=== PATIENT | female | born 1980 | race Caucasian/White ===

== ENCOUNTER 2017-08-01 11:42 | Emergency (ER) | payer BC, MEDICAID ==
--- NOTE | 2017-08-01 12:21 | Emergency Department Record ---
History of Present Illness - General Chief Complaint: Knee injury Stated Complaint: L KNEE INJURY Time Seen by Provider: 08/01/17 12:02 Source: Patient Mode of Arrival: Ambulatory Limitations: No limitations - History of Present Illness Initial Comments: The patient is here due to injuring her L knee about a week ago. She got up quickly to catch a grand child and then felt mild pain in the L knee. She has been able to walk and sit with no pain but now at night there seems to be pain under her kneecap. Due to the pain worsening she decided to come to the ER. She denies any other trauma or injury. Complaint: Knee injury Onset/Timin -: Week(s) Type of Injury: Unknown Place: Home Severity: Mild Severity scale (1-10): 2 Improves With: Other Worsens With: Other Context: Running Associated Symptoms: Other Treatments Prior to Arrival: NSAIDS - Related Data Previous Rx's Medication Instructions Recorded Naproxen [Naprosyn] 500 mg PO BID #14 tablet. 08/01/17 Allergies Allergy/AdvReac Type Severity Reaction Status Date / Time codeine Allergy Intermediate HIVES Verified 08/01/17 11:51 latex Allergy Intermediate BLISTERS Verified 08/01/17 11:51 morphine Allergy Intermediate HIVES Verified 08/01/17 11:51 Iodinated Contrast- Oral and Allergy HIVES Verified 08/01/17 11:51 IV Dye [Iodinated Contrast Media - Oral and] Travel Screening - Travel/Exposure Within Last 30 Days Have you traveled within the last 30 days?: No - Travel/Exposure Within Last Year Have you traveled outside the [place] in the last year?: No - Additonal Travel Details Have you been exposed to anyone with a communicable illness?: No - Travel Symptoms Symptom Screening: None Review of Systems Constitutional: Denies: Chills, Fever Past Medical History - SOCIAL HISTORY Smoking Status: Light tobacco smoker (<10/day) Alcohol Use: None Drug Use: None - RESPIRATORY Hx Respiratory Disorders: No - CARDIOVASCULAR Hx Cardio Disorders: No - NEURO Hx Neuro Disorders: No - GI Hx GI Disorders: No - Hx Genitourinary Disorders: Yes Comment:: uterine ablasion - ENDOCRINE Hx Endocrine Disorders: No - MUSCULOSKELETAL Hx Musculoskeletal Disorders: No - PSYCH Hx Psych Problems: No - HEMATOLOGY/ONCOLOGY Hx Hematology/Oncology Disorders: No Family Medical History Any Significant Family History?: Yes Hx Diabetes: Father Hx HTN: Father Hx Stroke: Grandparents Physical Exam - General General Appearance: Alert, Cooperative, No acute distress - Head Head exam: Atraumatic - Eye Eye exam: Normal appearance, PERRL - Extremities Extremities exam: Normal inspection, Full ROM (There is full flexion and extension and no ligamentous laxity.), Normal capillary refill. negative: Joint swelling, Tenderness (There is no tenderness to palpation. ) - Neurological Neurological exam: Normal gait (The patient is able to walk with no limping.). negative: Abnormal gait Course Vital Signs 08/01/17 11:51 Temperature 98.6 F Pulse Rate 86 Respiratory 14 Rate Blood Pressure 108/48 Pulse Ox 97 - Reevaluation(s) Reevaluation #1: I did explain to the patient that the knee appears very normal at this time. She is to use a knee brace for a week and take Naprosyn and see her PCP if not better after that time. 08/01/17 12:19 Disposition Disposition: Discharge Clinical Impression: Knee pain, left Qualifiers: Chronicity: acute Qualified Code(s): M25.562 - Pain in left knee Disposition: Home, Self-Care Condition: (2) Stable Instructions: Arthralgia (ED) Additional Instructions: Please wear a knee brace for 7-10 days and take the Naprosyn with food. Please see your PCP if not better in 10 days. Prescriptions: Naproxen [Naprosyn] 500 mg PO BID #14 tablet.dr Forms: Patient Portal Access Time of Disposition: 12:20 Quality - Quality Measures Quality Measures: N/A - Blood Pressure Screening View Details: Yes Does Patient Have Any of the Following: No Blood Pressure Classification: Normal BP Reading Systolic Measurement: 108 Diastolic Measurement: 48 Screening for High Blood Pressure: < Normal BP, F/U Not Required > [G8783]
== END 2017-08-01 12:27 | disposition home or self-care (01) ==
LOC: ER 11:42
DX: G89.11 Acute pain due to trauma (principal); M25.562 Pain in left knee; X50.0XXA Overexertion from strenuous movement or load, initial encounter; Y92.009 Unspecified place in unspecified non-institutional (private) residence as the place of occurrence of the external cause
CPT/HCPCS: 99282

== ENCOUNTER 2018-06-07 19:16 | Emergency (ER) | payer BC, OTHER ==
[2018-06-07 19:32] LABS: URINE APPEARANCE CLEAR; URINE BILIRUBIN NEGATIVE (NEGATIVE); URINE BLOOD SMALL (NEGATIVE); URINE COLOR YELLOW; URINE GLUCOSE (UA) NEGATIVE (NEGATIVE); URINE KETONE NEGATIVE (NEGATIVE); URINE LEUKOCYTE ESTERASE NEGATIVE (NEGATIVE); URINE NITRITE NEGATIVE (NEGATIVE); URINE PROTEIN NEGATIVE (NEGATIVE); URINE UROBILINOGEN 0.2 E.U./dL (0.20 - 1.00)
[2018-06-07 19:33] LABS: URINE EPITHELIAL CELLS 0 - 2 (FEW); URINE WBC 0 - 2 (0-2/hpf)
[2018-06-07 19:34] LABS: HCG,QUALITATIVE URINE NEGATIVE (NEGATIVE); URINE BACTERIA NONE SEEN
[2018-06-07] MEDS ORDERED: HYOSCYAMINE SULFATE ODT 0.125 MG TAB.SUBL SL ONE (19:34)
--- NOTE | 2018-06-07 19:36 | Emergency Department Record ---
History of Present Illness - General Chief Complaint: Abdominal Pain Stated Complaint: ABDOMINAL PAIN Time Seen by Provider: 06/07/18 19:33 Source: Patient Mode of Arrival: Ambulatory Limitations: No limitations - History of Present Illness Initial Comments: 37 yo female presents to ED for evaluation of epigastric and left sided abdominal pain that began 2 days ago. Patient describes pain similar to pain she experienced before having her gallbladder removed. Patient denies nausea, vomiting, fevers, or chills. Patient does report loose stool x 1 this morning. Patient reports tubal ligation and previous hand surgery. MD Complaint: Abdominal pain Onset/Timin -: Days(s) Location: Epigastric, LLQ Migration to: No migration Severity: Moderate Severity scale (1-10): 7 Quality: Sharp, Stabbing Consistency: Constant Improves With: Nothing Worsens With: Other Associated Symptoms: Diarrhea - Related Data LMP (females 10-50): Unknown Patient : No Previous Rx's Medication Instructions Recorded Naproxen [Naprosyn] 500 mg PO BID #14 tablet. 08/01/17 Sucralfate [Carafate] 1 g PO QID #60 udc 06/07/18 Allergies Allergy/AdvReac Type Severity Reaction Status Date / Time codeine Allergy Intermediate HIVES Verified 08/01/17 11:51 latex Allergy Intermediate BLISTERS Verified 08/01/17 11:51 morphine Allergy Intermediate HIVES Verified 08/01/17 11:51 Iodinated Contrast- Oral and Allergy HIVES Verified 08/01/17 11:51 IV Dye [Iodinated Contrast Media - Oral and] Travel Screening - Travel/Exposure Within Last 30 Days Have you traveled within the last 30 days?: No - Travel Symptoms Symptom Screening: Diarrhea Review of Systems Constitutional: Denies: Chills, Fever, Malaise, Night sweats Eyes: Denies: Eye discharge, Eye pain ENT: Denies: Congestion, Ear pain, Epistaxis Respiratory: Denies: Cough, Dyspnea Cardiovascular: Denies: Chest pain, Dyspnea on exertion Endocrine: Denies: Fatigue, Heat or cold intolerance Gastrointestinal: Reports: Abdominal pain. Denies: Nausea, Vomiting Genitourinary: Denies: Incontinence, Retention Musculoskeletal: Denies: Arthralgia, Back pain Skin: Denies: Bruising, Change in color Neurological: Denies: Abnormal gait, Confusion, Headache, Seizure Psychiatric: Denies: Anxiety Hematological/Lymphatic: Denies: Anemia, Blood Clots Past Medical History - SOCIAL HISTORY Smoking Status: Light tobacco smoker (<10/day) Alcohol Use: None Drug Use: None - RESPIRATORY Hx Respiratory Disorders: No - CARDIOVASCULAR Hx Cardio Disorders: No - NEURO Hx Neuro Disorders: No - GI Hx GI Disorders: No - Hx Genitourinary Disorders: Yes Comment:: uterine ablasion - ENDOCRINE Hx Endocrine Disorders: No - MUSCULOSKELETAL Hx Musculoskeletal Disorders: No - PSYCH Hx Psych Problems: No - HEMATOLOGY/ONCOLOGY Hx Hematology/Oncology Disorders: No Family Medical History Any Significant Family History?: Yes Hx Diabetes: Father Hx HTN: Father Hx Stroke: Grandparents Physical Exam - General General Appearance: Alert, Oriented x3, Cooperative, Moderate distress Limitations: No limitations - Head Head exam: Atraumatic, Normocephalic, Normal inspection Head exam detail: negative: Abrasion, Contusion, Carrero's sign, General tenderness, Hematoma, Laceration - Eye Eye exam: Normal appearance. negative: Conjunctival injection, Periorbital swelling, Periorbital tenderness, Scleral icterus - ENT Ear exam: negative: Auricular hematoma, Auricular trauma Nasal Exam: negative: Active bleeding, Discharge, Dried blood, Foreign body Mouth exam: negative: Drooling, Laceration, Muffled voice, Tongue elevation - Neck Neck exam: Normal inspection. negative: Meningismus, Tenderness - Respiratory Respiratory exam: Normal lung sounds bilaterally. negative: Rales, Respiratory distress, Rhonchi, Stridor - Cardiovascular Cardiovascular Exam: Regular rate, Normal rhythm, Normal heart sounds - GI/Abdominal GI/Abdominal exam: Soft, Tenderness (TTP epigastric region, LUQ, LLQ on examination.). negative: Rebound, Rigid - Rectal Rectal exam: Deferred - exam: Deferred - Extremities Extremities exam: Normal inspection. negative: Pedal edema, Tenderness - Back Back exam: Denies: CVA tenderness (R), CVA tenderness (L) - Neurological Neurological exam: Alert, Normal gait, Oriented X3 - Psychiatric Psychiatric exam: Normal affect, Normal mood - Skin Skin exam: Normal color. negative: Abrasion Type of lesion: negative: abrasion Course Vital Signs 06/07/18 19:26 Temperature 98.8 F Pulse Rate [ 100 H Pulse Ox Probe] Respiratory 20 Rate Blood Pressure 116/77 [Left Arm] Pulse Ox 97 - Reevaluation(s) Reevaluation #1: 06/07/18 20:41 Laboratory studies were reviewed and are grossly unremarkable for an acute process. CT Abdomen and Pelvis: No acute intra-abdominal process. Reevaluation #2: 06/07/18 21:20 Patient was reassessed, reports significant improvement following GI cocktail. Patient's seem most consistent with gastritis. Will treat with carafate as directed with follow-up. Medical Decision Making - Lab Data Result diagrams: 06/07/18 19:50 06/07/18 19:50 Lab Results 06/07/18 Range/Units 19:33 Urine Color Yellow Urine Appearance Clear Urine pH 7.0 (5.0-8.0) Ur Specific [place] 1.010 (1.002-1.030) Urine Protein Negative (NEGATIVE) Urine Glucose (UA) Negative (NEGATIVE) Urine Ketones Negative (NEGATIVE) Urine Blood Small H (NEGATIVE) Urine Nitrite Negative (NEGATIVE) Urine Bilirubin Negative (NEGATIVE) Urine Urobilinogen 0.2 (0.20 - 1.00) E.U./dL Ur Leukocyte Esterase Negative (NEGATIVE) Urine RBC 3 - 6 (NONE SEEN) Urine WBC 0 - 2 (0-2/hpf) Ur Epithelial Cells 0 - 2 (FEW) Urine Bacteria None seen Urine HCG, Qual Negative (NEGATIVE) Disposition Disposition: Discharge Clinical Impression: Epigastric abdominal pain Disposition: Home, Self-Care Condition: (2) Stable Instructions: Epigastric Pain (ED) Additional Instructions: Return to ED if your symptoms worsen or if you have any concerns. Carafate as directed. Follow-up with your family doctor in 3-5 days as directed. Prescriptions: Sucralfate [Carafate] 1 g PO QID #60 [facility] [place] Forms: Patient Portal Access Time of Disposition: 21:22 Quality - Quality Measures Quality Measures: N/A - Blood Pressure Screening Does Patient Have Any of the Following: No Blood Pressure Classification: Normal BP Reading Systolic Measurement: 110 Diastolic Measurement: 67 Screening for High Blood Pressure: < Normal BP, F/U Not Required > [G8783]
[2018-06-07] MEDS ORDERED: 0.9 % SODIUM CHLORIDE 1000ML 1,000 ML IV SCH (19:45)
[2018-06-07 19:58] LABS: BASO % 0.4 % (0-6); EOS % 9.1 % (0-6); HEMATOCRIT 38.9 % (35.0-47.0); HEMOGLOBIN 12.9 gm/dl (11.6-16.0); LYMPH % 23.8 % (16-45); MEAN CELL VOLUME 95.3 fl (81-97); MEAN CORPUSCULAR HEMOGLOBIN 31.6 pg (27-33); MEAN CORPUSCULAR HGB CONC 33.2 g/dl (32-36); MEAN PLATELET VOLUME 9.5 fl (7.4-10.4); MONO % 5.7 % (0-9); PLATELET COUNT 308 K/uL (130-400); RED BLOOD COUNT 4.08 M/uL (3.80-5.40); RED CELL DISTRIBUTION WIDTH 13.1 % (11.5-14.5); WHITE BLOOD COUNT W/O DIFF 9.9 K/uL (4.2-12.2)
[2018-06-07 20:11] LABS: BILIRUBIN,TOTAL < 0.20 mg/dL (0.2-1.0); BLOOD UREA NITROGEN 8 mg/dL (6-20); EST GLOMERULAR FILTRATION RATE > 60 mL/min; TOTAL PROTEIN 6.4 g/dL (6.6-8.7)
[2018-06-07 20:13] LABS: GLUCOSE,RANDOM 91 mg/dL (74-109)
[2018-06-07 20:16] LABS: ALB/GLOB RATIO 2.2 (1.1-1.8); ALBUMIN 4.4 g/dL (4.0-5.0); ALKALINE PHOSPHATASE 68 U/L (35-104); ALT/SGPT 9 U/L (<33); AST/SGOT 10 U/L (10.0-35.0); LIPASE 21 U/L (13-60)
[2018-06-07] MEDS ORDERED: MAGNESIUM HYDROXIDE/AL HYDROX 30 ML, LIDOCAINE VISC 2% 15ML 15 ML PO ONE ×2 (20:47)
--- NOTE | 2018-06-08 11:19 | CT SCAN REPORT ---
EXAM: CT OF THE ABDOMEN AND PELVIS WITHOUT CONTRAST HISTORY: ABDOMINAL PAIN. TECHNIQUE: Noncontrast CT of the abdomen and pelvis was obtained. FINDINGS: The small bowel appears normal. The colon appears normal. The appendix is visualized and appears normal. The urinary bladder is normal. The uterus is retroverted. The osseous structures are normal. IMPRESSION: NO ACUTE ABDOMINAL OR PELVIC DISEASE PROCESS. JOB NUMBER: [id number] MTDD
== END 2018-06-07 21:33 | disposition home or self-care (01) ==
LOC: ER 19:16
DX: R10.13 Epigastric pain (principal); R19.7 Diarrhea, unspecified; F17.210 Nicotine dependence, cigarettes, uncomplicated
CPT/HCPCS: 99284 ×2; 83690; 85025; 80053; 81001; 81025; 74176; J1980; J7030

== ENCOUNTER 2018-09-15 18:48 | Emergency (ER) | payer OTHER ==
--- NOTE | 2018-09-15 19:29 | Emergency Department Record ---
History of Present Illness - General Chief complaint: Abscess Stated complaint: BOIL PELVIC REGION Time Seen by Provider: 09/15/18 19:16 Source: Patient, RN notes reviewed Mode of Arrival: Ambulatory - History of Present Illness Initial comments: left labia majora abscess painful and red and fluctuant started 4 days ago complaint: Abscess/boil Onset/Timin -: Days(s) Hx Tetanus Toxoid Vaccination: Yes Year of Tetanus Vaccination: unsure Location: Genitals Severity: Moderate Severity scale (1-10): 8 Quality: Sharp, Stabbing Consistency: Constant Improves with: Other Worsens with: Palpation Associated symptoms: Denies other symptoms Treatments Prior to Arrival: Attempted to drain pus at home - Related Data Previous Rx's Medication Instructions Recorded Naproxen [Naprosyn] 500 mg PO BID #14 tablet. 08/01/17 Cephalexin [Keflex] 500 mg PO QID #40 cap 09/15/18 Naproxen [Naprosyn] 500 mg PO Q12H #20 tab. 09/15/18 Sulfamethoxazole/Trimethoprim 1 each PO BID #20 tablet 09/15/18 [Bactrim Ds Tablet] Allergies Allergy/AdvReac Type Severity Reaction Status Date / Time codeine Allergy Intermediate HIVES Verified 09/15/18 18:56 latex Allergy Intermediate BLISTERS Verified 09/15/18 18:56 morphine Allergy Intermediate HIVES Verified 09/15/18 18:56 Iodinated Contrast- Oral and Allergy HIVES Verified 09/15/18 18:56 IV Dye [Iodinated Contrast Media - Oral and] Travel Screening - Travel/Exposure Within Last 30 Days Have you traveled within the last 30 days?: No - Travel/Exposure Within Last Year Have you traveled outside the [place] in the last year?: No - Additonal Travel Details Have you been exposed to anyone with a communicable illness?: No - Travel Symptoms Symptom Screening: None Review of Systems Reviewed: No additional complaints except as noted below Constitutional: Reports: As per HPI. Denies: Chills, Fever, Malaise, Night sweats, Weakness, Weight change Eyes: Reports: As per HPI. Denies: Eye discharge, Eye pain, Photophobia, Vision change ENT: Reports: As per HPI. Denies: Congestion, Dental pain, Ear pain, Epistaxis , Hearing loss, Throat pain Respiratory: Reports: As per HPI. Denies: Cough, Dyspnea, Hemoptysis, Stridor, Wheezes Cardiovascular: Reports: As per HPI. Denies: Arrhythmia, Chest pain, Dyspnea on exertion, Edema, Murmurs, Orthopnea, Palpitations, Paroxysmal nocturnal dyspnea, Rheumatic Fever, Syncope Endocrine: Reports: As per HPI. Denies: Fatigue, Heat or cold intolerance, Polydipsia, Polyuria Gastrointestinal: Reports: As per HPI. Denies: Abdominal pain, Constipation, Diarrhea, Hematemesis, Hematochezia, Melena, Nausea, Vomiting Genitourinary: Reports: As per HPI, Other (abscess). Denies: Abnormal menses, Discharge, Dyspareunia, Dysuria, Frequency, Hematuria, Incontinence, Retention, Urgency Musculoskeletal: Reports: As per HPI. Denies: Arthralgia, Back pain, Gout, Joint swelling, Myalgia, Neck pain Skin: Reports: As per HPI. Denies: Bruising, Change in color, Change in hair/ nails, Lesions, Pruritus, Rash Neurological: Reports: As per HPI. Denies: Abnormal gait, Confusion, Headache, Numbness, Paresthesias, Seizure, Tingling, Tremors, Vertigo, Weakness Psychiatric: Reports: As per HPI. Denies: Anxiety, Auditory hallucinations, Depression, Homicidal thoughts, Suicidal thoughts, Visual hallucinations Hematological/Lymphatic: Reports: As per HPI. Denies: Anemia, Blood Clots, Easy bleeding, Easy bruising, Swollen glands Past Medical History - SOCIAL HISTORY Smoking Status: Light tobacco smoker (<10/day) Alcohol Use: Occasional Drug Use: None - RESPIRATORY Hx Respiratory Disorders: No - CARDIOVASCULAR Hx Cardio Disorders: No - NEURO Hx Neuro Disorders: No - GI Hx GI Disorders: No - Hx Genitourinary Disorders: Yes Comment:: uterine ablasion - ENDOCRINE Hx Endocrine Disorders: No - MUSCULOSKELETAL Hx Musculoskeletal Disorders: No - PSYCH Hx Psych Problems: No - HEMATOLOGY/ONCOLOGY Hx Hematology/Oncology Disorders: No Family Medical History Any Significant Family History?: Yes Hx Diabetes: Father Hx HTN: Father Hx Stroke: Grandparents Physical Exam - General General Appearance: Alert, Oriented x3, Cooperative, No acute distress - Head Head exam: Normal inspection - Eye Eye exam: Normal appearance, PERRL Pupils: Normal accommodation - ENT ENT exam: Normal exam, Mucous membranes moist, Normal external ear exam, Normal orophraynx, TM's normal bilaterally Ear exam: Normal external inspection. negative: External canal tenderness Nasal Exam: Normal inspection. negative: Discharge, Sinus tenderness Mouth exam: Normal external inspection, Tongue normal Teeth exam: Normal inspection. negative: Dental caries Throat exam: Normal inspection. negative: Tonsillar erythema, Tonsillar exudate - Neck Neck exam: Normal inspection, Full ROM. negative: Tenderness - Respiratory Respiratory exam: Normal lung sounds bilaterally. negative: Respiratory distress - Cardiovascular Cardiovascular Exam: Regular rate, Normal rhythm, Normal heart sounds - GI/Abdominal GI/Abdominal exam: Soft, Normal bowel sounds. negative: Tenderness - Rectal Rectal exam: Deferred - exam: Deferred - Extremities Extremities exam: Normal inspection, Full ROM, Normal capillary refill. negative: Tenderness - Back Back exam: Reports: Normal inspection, Full ROM. Denies: Muscle spasm, Rash noted, Tenderness - Neurological Neurological exam: Alert, Normal gait, Oriented X3, Reflexes normal - Psychiatric Psychiatric exam: Normal affect, Normal mood - Skin Skin exam: Dry, Intact, Normal color, Warm Type of lesion: Abscess (left labia majora) Course Vital Signs 09/15/18 18:58 Temperature 98.2 F Pulse Rate 81 Respiratory 20 Rate Blood Pressure 115/68 Pulse Ox 100 - Reevaluation(s) Reevaluation #1: prepped skin with shurcleans 1% lidocaine I and D abscess with purulent drainage iodoform guaze placed 09/15/18 19:31 Disposition Clinical Impression: Abscess Disposition: Home, Self-Care Condition: (1) Good Instructions: Abscess Incision and Drainage (ED) Additional Instructions: follow up with Dr Ospina in the office tomorrow at 1:30 pm Prescriptions: Cephalexin [Keflex] 500 mg PO QID #40 cap Naproxen [Naprosyn] 500 mg PO Q12H #20 tab. Sulfamethoxazole/Trimethoprim [Bactrim Ds Tablet] 1 each PO BID #20 tablet Forms: Patient Portal Access Time of Disposition: 19:37 Quality - Quality Measures Quality Measures: N/A - Blood Pressure Screening Does Patient Have Any of the Following: No Blood Pressure Classification: Normal BP Reading Systolic Measurement: 115 Diastolic Measurement: 68 Screening for High Blood Pressure: < Normal BP, F/U Not Required > [G8783]
[2018-09-15] MEDS ORDERED: CEPHALEXIN 500 MG CAPSULE PO STA (19:34)
[2018-09-15] MEDS ORDERED: TMP/SMZ 160MG/800MG TAB PO ONE (19:34)
[2018-09-15] MEDS ORDERED: ACETAMINOPHEN W/ CODEINE 300MG/60MG TABLET PO ONE (19:35)
[2018-09-15] MEDS ORDERED: ACETAMINOPHEN W/ CODEINE 300MG/30MG TABLET PO ONE (19:43)
== END 2018-09-15 19:51 | disposition home or self-care (01) ==
LOC: ER 18:48
DX: N76.4 Abscess of vulva (principal); F17.210 Nicotine dependence, cigarettes, uncomplicated
CPT/HCPCS: 56405; 99284